=== PATIENT | male | born 1955 | race Caucasian/White ===

== ENCOUNTER → 2021-05-22 | Outpatient (CLI) | payer BC ==
--- NOTE | 2021-05-22 10:42 | REP ---
INDICATION: COUGH, SOB COMPARISON: None. TECHNIQUE: PA and lateral. FINDINGS: The mediastinum and cardiac silhouette are normal. The lung cochran are clear and without acute consolidation, effusion, or pneumothorax. The skeletal structures are intact and normal. IMPRESSION: No acute cardiopulmonary process. <Electronically signed by Chepe Moe > 05/22/21 1038
== END ==
LOC: M WUC 09:44
PROVIDERS: ATTEND Internal Medicine
DX: R05.9 Cough, unspecified (principal); R06.02 Shortness of breath

== ENCOUNTER → 2022-05-28 | Outpatient (CLI) | payer MEDICARE | LOC: M WUC 08:28 | PROVIDERS: ATTEND Internal Medicine | DX: R05.9 Cough, unspecified (principal) ==

== ENCOUNTER → 2022-06-03 | Outpatient (REF) | payer MEDICARE | LOC: M LAB REF 11:26 | PROVIDERS: ATTEND Physician Assistant Medical | DX: E87.1 Hypo-osmolality and hyponatremia (principal) ==

== ENCOUNTER → 2022-06-18 | Outpatient (REF) | payer MEDICARE | LOC: M LAB REF 08:58 | PROVIDERS: ATTEND Internal Medicine | DX: R06.02 Shortness of breath (principal) ==

== ENCOUNTER → 2022-06-22 | Outpatient (CLI) | payer MEDICARE | LOC: M PLAIMG 10:50 | PROVIDERS: ATTEND Physician Assistant Medical | DX: R05.9 Cough, unspecified (principal) ==

== ENCOUNTER → 2022-08-18 | Outpatient (REF) | payer MEDICARE | LOC: M LAB REF 15:09 | PROVIDERS: ATTEND Internal Medicine Pulmonary Disease | DX: R05.9 Cough, unspecified (principal) ==

== ENCOUNTER → 2022-10-29 | Outpatient (CLI) | payer MEDICARE ==
[~2022-10-29] MED LIST: METHACHOLINE KIT INH ONE
== END ==
LOC: M CARPUL 07:21
PROVIDERS: ATTEND Internal Medicine Pulmonary Disease
DX: R06.00 Dyspnea, unspecified (principal)
CPT/HCPCS: 94070; 95070; J7674

== ENCOUNTER → 2023-01-08 | Outpatient (CLI) | payer MEDICARE | LOC: M WUC 08:31 | PROVIDERS: ATTEND Nurse Practitioner Family | DX: R07.82 Intercostal pain (principal) ==

== ENCOUNTER → 2023-04-08 | Outpatient (CLI) | payer MEDICARE ==
[~2023-04-08] MED LIST changes: +ALLO300T2 PO; +AMLO1TAB25 PO; +ATOR1TAB21 PO; +BUPR-71 PO; +ECOT81TA5 PO; +IPRA6SP INH; +JARD1TAB3 PO; +MELO15TA28 PO; +METF750T36 PO; -METHACHOLINE KIT INH ONE; +OMEP40CA5 PO
== END ==
LOC: M SOG 07:47
PROVIDERS: ATTEND Physician Assistant
DX: M25.522 Pain in left elbow (principal)

== ENCOUNTER 2023-04-14 10:25 | Day surgery (SDC) | payer MEDICARE ==
[~2023-04-14] VITALS: Ht 172.7 cm; Wt 90.8 kg
[2023-04-14] MEDS ORDERED: LR 1,000 ML IV SCH ×2 (10:40→14:25)
[2023-04-14 11:35] LABS: BLOOD UREA NITROGEN 11 MG/DL (9-23); CALCIUM LEVEL 9.3 MG/DL (8.3-10.6); CARBON DIOXIDE LEVEL 26 MMOL/L (20-31); CHLORIDE LEVEL 103 MMOL/L (98-107); CREATININE FOR GFR 0.83 MG/DL (0.70-1.30); GLOMERULAR FILTRATION RATE > 60.0 (>49); GLUCOSE, FASTING 151 MG/DL (74-106); POTASSIUM SERUM 4.2 MMOL/L (3.5-5.1); SODIUM LEVEL 140 MMOL/L (136-145)
[2023-04-14] MEDS ORDERED: ceFAZolin SOD 2 GM in IV 1 EA IV ONE (11:35)
[2023-04-14] MEDS ORDERED: BACITRACIN OINTMENT 30GM TUBE As Ordered ONE (12:46)
[2023-04-14] MEDS ORDERED: ceFAZolin 2 GM/D5W 50 ML IV BAG As Ordered ONE (13:23)
[2023-04-14] MEDS ORDERED: propofoL 200 MG/20 ML VIAL As Ordered ONE (13:25)
[2023-04-14] MEDS ORDERED: MIDAZOLAM INJ 2MG/2ML VIAL As Ordered ONE (13:25)
[2023-04-14] MEDS ORDERED: ONDANSETRON 4MG 2ML VIAL As Ordered ONE (13:25)
[2023-04-14] MEDS ORDERED: ACETAMINOPHEN 1000MG 100ML IV BAG As Ordered ONE (13:25)
[2023-04-14] MEDS ORDERED: LIDOCAINE 2% 100MG/5ML SDV (FOR ANES.) As Ordered ONE (13:25)
[2023-04-14] MEDS ORDERED: METOCLOPRAMIDE INJ 10MG/2ML VIAL As Ordered ONE (13:25)
[2023-04-14] MEDS ORDERED: dexmedeTOMIDine (4MCG/ML)200MCG/50ML BTL (PRECEDEX) As Ordered ONE (13:25)
[2023-04-14] MEDS ORDERED: SUGAMMADEX SODIUM 500 MG/5 ML VIAL (BRIDION) As Ordered ONE (13:25)
[2023-04-14] MEDS ORDERED: ROCURONIUM BROMIDE 50MG/5ML VIAL As Ordered ONE (13:25)
[2023-04-14] MEDS ORDERED: fentaNYL 100 MCG/2 ML INJECTION As Ordered ONE (13:25)
[2023-04-14] MEDS ORDERED: DESFLURANE 240 ML INHALANT As Ordered ONE (14:03)
[2023-04-14] MEDS ORDERED: KETOROLAC 60MG 2ML VIAL As Ordered ONE (14:08)
[2023-04-14] MEDS ORDERED: oxyCODONE 5MG TAB PO PRN (14:25)
[2023-04-14] MEDS ORDERED: ONDANSETRON 4MG 2ML VIAL IV PRN (14:25)
[2023-04-14] MEDS ORDERED: fentaNYL 100 MCG/2 ML INJECTION IV PRN (14:25)
[2023-04-14] MEDS ORDERED: PERCOCET PO (14:32)
[2023-04-14 15:20] VITALS: BP 138/78; TEMP 98.1; O2SAT 97
== END 2023-04-14 15:34 | disposition home or self-care (01) ==
LOC: M SDC 10:25
PROVIDERS: ATTEND Orthopaedic Surgery Hand Surgery
DX: M70.22 Olecranon bursitis, left elbow (principal); M77.8 Other enthesopathies, not elsewhere classified; M10.9 Gout, unspecified; E11.9 Type 2 diabetes mellitus without complications; Z79.84 Long term (current) use of oral hypoglycemic drugs; Z79.899 Other long term (current) drug therapy; Z79.82 Long term (current) use of aspirin; Z85.828 Personal history of other malignant neoplasm of skin
CPT/HCPCS: 24105; 36415; 80048; 87070; 87075; 87205; 88304; 93005; J0131; J0665; J0690; J1100; J1885; J2250; J2405; J2765; J3010

== ENCOUNTER → 2023-05-19 | Outpatient (REF) | payer MEDICARE ==
[~2023-05-19] MED LIST changes: +PERCOCET PO
== END ==
LOC: M LAB REF 13:45
PROVIDERS: ATTEND Internal Medicine
DX: M10.9 Gout, unspecified (principal)

== ENCOUNTER 2023-09-06 09:57 | Day surgery (SDC) | payer MEDICARE ==
[~2023-09-06] VITALS: Ht 172.7 cm; Wt 89.9 kg
[~2023-09-06 09:57] MED LIST changes: +BUPR15TASR PO
[2023-09-06] MEDS: NS 1,000 ML IV ONE (10:14)
[2023-09-06 11:35] VITALS: TEMP 99.4
[2023-09-06] MEDS ORDERED: propofoL 500 MG/50 ML VIAL As Ordered ONE (11:36)
[2023-09-06 11:50] VITALS: BP 140/81; O2SAT 98
== END 2023-09-06 12:09 | disposition home or self-care (01) ==
LOC: M OPP 09:57
PROVIDERS: ATTEND Internal Medicine Gastroenterology
DX: Z12.11 Encounter for screening for malignant neoplasm of colon (principal); D12.6 Benign neoplasm of colon, unspecified; K64.0 First degree hemorrhoids; K57.30 Diverticulosis of large intestine without perforation or abscess without bleeding; K22.70 Barrett's esophagus without dysplasia; K22.89 Other specified disease of esophagus; K44.9 Diaphragmatic hernia without obstruction or gangrene; R12 Heartburn; E11.9 Type 2 diabetes mellitus without complications; I10 Essential (primary) hypertension; Z79.82 Long term (current) use of aspirin; Z79.84 Long term (current) use of oral hypoglycemic drugs; Z79.899 Other long term (current) drug therapy

== ENCOUNTER → 2023-12-23 | Outpatient (CLI) | payer MEDICARE | LOC: M RAD 09:58 | PROVIDERS: ATTEND Internal Medicine | DX: K76.0 Fatty (change of) liver, not elsewhere classified (principal); K74.00 Hepatic fibrosis, unspecified ==

== ENCOUNTER → 2024-07-17 | Outpatient (REF) | payer MEDICARE ==
[2024-07-17 19:54] LABS: HEPATITIS B SURFACE ANTIGEN NEGATIVE (NEGATIVE)
[2024-07-17 21:16] LABS: HEPATITIS C VIRUS ABY INDEX 0.11 INDEX (<0.8)
== END ==
LOC: M LAB REF 17:22
PROVIDERS: ATTEND Internal Medicine
DX: K76.0 Fatty (change of) liver, not elsewhere classified (principal); K74.00 Hepatic fibrosis, unspecified

== ENCOUNTER → 2024-08-18 | Outpatient (CLI) | payer MEDICARE | LOC: M RAD 07:38 | PROVIDERS: ATTEND Internal Medicine | DX: K74.00 Hepatic fibrosis, unspecified (principal) ==

== ENCOUNTER → 2025-03-22 | Outpatient (CLI) | payer MEDICARE | LOC: M WUC 09:10 | PROVIDERS: ATTEND Internal Medicine | DX: M89.9 Disorder of bone, unspecified (principal) ==